=== PATIENT | male | born 1970 | race Caucasian/White ===

== ENCOUNTER → 2021-04-14 13:35 | Outpatient (BNVA) | payer MEDICAID, SELFPAY | PROVIDERS: Family Provider Nurse Practitioner; Referring Provider Nurse Practitioner Family; Visit Provider Specialist | DX: R41.3 Other amnesia (principal); R56.9 Unspecified convulsions; F31.9 Bipolar disorder, unspecified; G47.33 Obstructive sleep apnea (adult) (pediatric); F17.210 Nicotine dependence, cigarettes, uncomplicated | CPT/HCPCS: 96116; 99204; 99205 ==

== ENCOUNTER → 2021-05-13 12:53 | Outpatient (BNVA) | payer MEDICAID, SELFPAY | PROVIDERS: Family Provider Nurse Practitioner; Referring Provider Specialist; Visit Provider Specialist | DX: R56.9 Unspecified convulsions (principal) | CPT/HCPCS: 95816 ==

== ENCOUNTER → 2021-07-16 09:38 | Outpatient (BNVA) | payer MEDICAID, SELFPAY | PROVIDERS: Family Provider Nurse Practitioner; PCP Nurse Practitioner Family; Visit Provider Specialist | DX: R56.9 Unspecified convulsions (principal); F31.9 Bipolar disorder, unspecified; G47.33 Obstructive sleep apnea (adult) (pediatric); F17.200 Nicotine dependence, unspecified, uncomplicated | CPT/HCPCS: 99215 ==

== ENCOUNTER → 2021-10-06 12:48 | Outpatient (BNVA) | payer MEDICAID, SELFPAY | PROVIDERS: Family Provider Nurse Practitioner; PCP Nurse Practitioner Family; Referring Provider Specialist; Visit Provider Specialist | DX: R56.9 Unspecified convulsions (principal) | CPT/HCPCS: 95816 ==

== ENCOUNTER 2021-10-14 00:33 | Emergency (ER) | payer MEDICAID, SELFPAY ==
[2021-10-14 00:45] VITALS: BP 146/89; PULSE 64; RESP 17; TEMP 36.8; O2SAT 96; BMI 35.6
--- NOTE | 2021-10-14 02:00 | CTR_ITS ---
PROCEDURE INFORMATION: Exam: CT Abdomen And Pelvis Without Contrast Exam date and time: 10/14/2021 2:22 AM Age: 51 years old Clinical indication: Abdominal pain; Flank; Right; Prior surgery; Surgery date: 6+ months; Surgery type: Gb; Additional info: Abd pain TECHNIQUE: Imaging protocol: Computed tomography of the abdomen and pelvis without contrast. Radiation optimization: All CT scans at this facility use at least one of these dose optimization techniques: automated exposure control; mA and/or kV adjustment per patient size (includes targeted exams where dose is matched to clinical indication); or iterative reconstruction. COMPARISON: US abdomen limited [id number] 12/25/2016 9:13 AM RADIATION DOSE METRICS: Total DLP (mGy-cm): 1397.15 FINDINGS: Liver: Normal. No mass. Gallbladder and bile ducts: The gallbladder has been surgically removed. Pancreas: Normal. No ductal dilation. Spleen: Normal. No splenomegaly. Adrenal glands: Normal. No mass. Kidneys and ureters: There is a 0.4 cm obstructing stone in the right proximal ureter, resulting in mild hydronephrosis. Nonobstructing stone noted in the left mid kidney. Stomach and bowel: Unremarkable. No obstruction. No mucosal thickening. Appendix: There has been an appendectomy. Intraperitoneal space: Unremarkable. No free air. No significant fluid collection. Vasculature: Mild diffuse atherosclerotic disease is present. Lymph nodes: Small reactive mesenteric lymph nodes noted in the right mid abdomen. Urinary bladder: Unremarkable as visualized. Reproductive: Unremarkable as visualized. Bones/joints: Unremarkable. No acute fracture. Soft tissues: A small fat containing right inguinal hernia is present. CT/CT abdomen pelvis wo con [id number] IMPRESSION: Right proximal ureter obstructing stone, resulting in mild hydronephrosis.
--- NOTE | 2021-10-14 02:04 | ED_ITS ---
HPI - Abdominal Pain General: Chief Complaint: Abdominal Pain Stated Complaint: ABD Pain Time Seen by Provider: 10/14/21 00:34 Source: patient Mode of arrival: ambulatory Limitations: no limitations History of Present Illness: 51-year-old male who states he has been having abdominal pain throughout the day. He states started roughly at 4 PM its been his right lower quadrant is progressively worsened he states his pain is currently a 7 out of 10 denies any vomiting or diarrhea. States it is worse w ith palpation improved with some rest. Denies any fevers. No history of abdominal surgeries in the past. He has had a history of kidney stones. Denies any dysuria Associated Symptoms: Denies chills, dysuria and fever(s) Review of Systems Const: Denies: fever(s), chills, body aches or change in appetite Eyes: Denies: blurry vision or eye discomfort ENMT: Denies: throat pain or dental pain Card: Denies: chest pain Resp: Denies: dyspnea GI: Reports: abdominal pain : Denies: dysuria Musc: Denies: neck pain or back pain Skin/Breast: Denies: rash Neuro: Denies: headache(s) Psych: Denies: depression Dell/Lymph: Denies: easy bruising All/Imm: Denies: urticaria PFSH ED PFSH: Medical History (Updated 10/14/21 @ 02:57 by Ryan Pastor MD) Hypertension Social History Smoking and tobacco status: current every day smoker Alcohol intake: never History of recent travel: No Physical Exam Const: COMMON NORMALS: no acute distress, patient oriented x3 and healthy appearing HENMT: COMMON NORMALS: normocephalic and atraumatic HEAD & SCALP: norm ocephalic and atraumatic Eye: COMMON NORMALS: Equal, round and reactive pupils present and EOMs intact bilaterally PUPIL: Yes Equal, round and reactive pupils present Neck/C-Spine: COMMON NORMALS: full ROM and supple Chest: COMMONS NORMALS: normal inspection of the chest and normal palpation of entire chest wall Resp: COMMON NORMALS: normal respiratory effort, No retractions, No use of accessory muscles and clear to auscultation bilaterally AUSCULTATION: clear to auscultation bilaterally Cardio: COMMON NORMALS: regular rate, regular rhythm and No murmurs present (Cardio) RATE: regular rate RHYTHM: regular rhythm GI: COMMON NORMALS: Normal to inspection, nondistended, normoactive bowel sounds present, Soft to palpation and no masses PALPATION: Yes Soft to palpation and Yes Tenderness to palpation present (GI) Details: RLQ Extremity: COMMON NORMALS: normal to inspection and full ROM Neuro: COMMON NORMALS: patient oriented x3, moves all extremities and no focal motor deficits Psych: COMMON NORMALS: mental status grossly normal, Normal thought process present and cooperative THOUGHT PROCESS: Normal thought process present Skin: COMMON NORMALS: no rashes or lesions noted and no wounds GENERAL SKIN EXAM: no rashes or lesions noted Course Vital Signs: Vital signs: Vital Signs Temperature 98.3 F 10/14/21 00:45 Pulse Rate 64 10/14/21 00:45 Respiratory Rate 18 10/14/21 02:36 Blood Pressure 146/89 10/14/21 00:45 Pulse Oximetry 96 10/14/21 00:45 MDM - Abdominal Pain Medical Decision Making Patient presents with a kidney stone likely causing his pain his pain is much improved here we will get him follow-up with urology he is stable for discharge. Lab Data : 10/14/21 02:30 10/14/21 02:30 Labs/Radiology: Radiology Impressions Abdomen/Pelvis CT 10/14/21 02:00 IMPRESSION: Right proximal ureter obstructing stone, resulting in mild hydronephrosis. Laboratory Results WBC 8.3 10^3/uL (4.0-10.0) 10/14/21 02:30 RBC 4.82 10^6/uL (4.1-5.3) 10/14/21 02:30 Hgb 14.5 g/dL (11.7-16.6) 10/14/21 02:30 Hct 42.5 % (42.0-52.0) 10/14/21 02:30 MCV 88.2 fl (80-94) 10/14/21 02:30 MCH 30.1 pg (28.0-34.0) 10/14/21 02:30 MCHC 34.1 g/dL (30.0-36.0) 10/14/21 02:30 RDW 12.3 % (12.1-15.1) 10/14/21 02:30 Plt Count 230 10^3/cmm (130-400) 10/14/21 02:30 MPV 11.0 fL (7.4-10.4) H 10/14/21 02:30 Neut % (Auto) 60.0 % 10/14/21 02:30 Lymph % (Auto) 24.8 % 10/14/21 02:30 Martin % (Auto) 10.7 % 10/14/21 02:30 Eos % (Auto) 3.5 % 10/14/21 02:30 Baso % (Auto) 0.6 % 10/14/21 02:30 Neut # (Auto) 4.98 10^3/uL (1.8-7.7) 10/14/21 02:30 Lymph # (Auto) 2.1 10^3/uL (0.8-4.8) 10/14/21 02:30 Martin # (Auto) 0.9 10^3/uL (0.2-0.9) 10/14/21 02:30 Eos # (Auto) 0.3 10^3/uL (0.0-0.8) 10/14/21 02:30 Baso # (Auto) 0.1 10^3/uL (0.0-0.1) 10/14/21 02:30 Nucleated RBC % (auto) 0 % 10/14/21 02:30 Nucleated RBCs # 0.0 /100WBC 10/14/21 02:30 Sodium 140 mmol/L (136-145) 10/14/21 02:30 Potassium 3.7 mmol/L (3.5-5.1) 10/14/21 02:30 Chloride 102 mmol/L (98-107) 10/14/21 02:30 Carbon Dioxide 28 mmol/L (22-29) 10/14/21 02:30 Anion Gap 13.7 (5-19) 10/14/21 02:30 BUN 16 mg/dL (6-20) 10/14/21 02:30 Creatinine 0.8 mg/dL (0.7-1.2) 10/14/21 02:30 GFR Calculation 101.9 mL/min (90-130) 10/14/21 02:30 Glucose 112 mg/dL (65-115) 10/14/21 02:30 Calculated Osmolality 292 mOsm/kg (285-295) 10/14/21 02:30 Calcium 9.4 mg/dL (8.5-10.5) 10/14/21 02:30 Total Bilirubin 0.2 mg/dL (0.15-1.2) 10/14/21 02:30 AST 25 U/L (0-40) 10/14/21 02:30 ALT 32 U/L (0-41) 10/14/21 02:30 Alkaline Phosphatase 70 IU/L (40-130) 10/14/21 02:30 Total Protein 7.6 g/dL (6.6-8.7) 10/14/21 02:30 Albumin 4.3 g/dL (3.5-5.2) 10/14/21 02:30 Globulin 3.3 g/dL (1.3-4.6) 10/14/21 02:30 Lipase 18 U/L (13-60) 10/14/21 02:30 Urine Color Dark yellow (Yellow) 10/14/21 02:53 Urine Appearance Hazy (CLEAR) A 10/14/21 02:53 Urine pH 5 (5-7) 10/14/21 02:53 Ur Specific [place] 1.030 (1.005-1.030) 10/14/21 02:53 Urine Protein 1+ (Negative) H 10/14/21 02:53 Urine Glucose (UA) Norm (Normal) 10/14/21 02:53 Urine Ketones 1+ (Negative) H 10/14/21 02:53 Urine Blood 3+ (Negative) H 10/14/21 02:53 Urine Nitrate Negative (Negative) 10/14/21 02:53 Urine Bilirubin Neg (Negative) 10/14/21 02:53 Urine Urobilinogen 1 mg/dL (Negative) H 10/14/21 02:53 Ur Leukocyte Esterase Negative (Negative) 10/14/21 02:53 Urine RBC Too numerous to cnt /hpf (0-2) H 10/14/21 02:53 Urine WBC 0-4 /hpf (0-5) H 10/14/21 02:53 Ur Squamous Epith Cells 0-4 /hpf (0-5) H 10/14/21 02:53 Calcium Oxalate Crystal 0-4 /hpf H 10/14/21 02:53 Amorphous Sediment Not Reportable 10/14/21 02:53 Urine Bacteria Trace /hpf (NONE) 10/14/21 02:53 Urine Mucus 1+ /hpf 10/14/21 02:53 Urine Sperm 2+ /hpf 10/14/21 02:53 Discharge Plan Discharge Patient Disposition: Home Clinical Impression: Calculus of kidney Condition: Stable Prescriptions: New hydrocodone-acetaminophen 5-325 mg tablet 1 tab PO Q6H PRN (Reason: pain) Qty: 14 0RF ondansetron 4 mg tablet,disintegrating 4 mg PO Q6H PRN (Reason: nausea and vomiting) Qty: 14 0RF Flomax 0.4 mg capsule 0.4 mg PO DAILY Qty: 4 0RF No Action atomoxetine [Strattera] 18 mg capsule 36 mg PO DAILY 0RF meloxicam 15 mg tablet 15 mg PO DAILY 0RF lisinopril 10 mg tablet 10 mg PO DAILY 0RF lamotrigine 200 mg tablet 200 mg PO BID 0RF aripiprazole 10 mg tablet 10 mg PO DAILY 0RF tamsulosin 0.4 mg capsule 0.4 mg PO DAILY 0RF tizanidine 4 mg capsule 4 mg PO BID PRN0RF testosterone cypionate 200 mg/mL oil 100 mg SUBCUT Q7D 0RF Discharge Orders: Discharge ED (Routine); Ordered 10/14/21 Ordered By: Ryan Pastor Referrals: Zion Banerjee MD [Physician] - 1-3 days Ami Bui [Primary Care Provider] - Discharge Diet: Advance as tolerated Discharge Activity: Resume usual activity Patient Instructions: Kidney Stones (ED), Opioid Safety Coding Level of Care Code ED Director Of Rehabilitation And Wellness for Chg Fwd Exam Comprehensive
[2021-10-14 02:36] VITALS: RESP 18
[2021-10-14] MEDS: ondansetron 2 mg/ML SDV 2 mL 4 MG IVP (02:36)
[2021-10-14] MEDS: morphine 4 mg/mL SDV 1 mL IVP ×2 (02:36→04:33)
[2021-10-14] MEDS: sodium chloride 0.9% 1,000 ML 999 ML IV (02:37)
[2021-10-14 02:44] LABS: Basophils # 0.1 10^3/uL (0.0-0.1); Basophils % 0.6 %; Eosinophils # 0.3 10^3/uL (0.0-0.8); Eosinophils % 3.5 %; Hematocrit 42.5 % (42.0-52.0); Hemoglobin 14.5 g/dL (11.7-16.6); Lymphocytes # 2.1 10^3/uL (0.8-4.8); Lymphocytes % 24.8 %; Mean Corpuscular HGB Conc 34.1 g/dL (30.0-36.0); Mean Corpuscular Hemoglobin 30.1 pg (28.0-34.0); Mean Corpuscular Volume 88.2 fl (80-94); Monocytes # 0.9 10^3/uL (0.2-0.9); Monocytes % 10.7 %; Neutrophils # 4.98 10^3/uL (1.8-7.7); Nucleated Red Blood Cells % 0 %; Platelet Count 230 10^3/cmm (130-400); Red Blood Count 4.82 10^6/uL (4.1-5.3); Red Cell Distribution Width 12.3 % (12.1-15.1); White Blood Count 8.3 10^3/uL (4.0-10.0)
[2021-10-14 03:04] LABS: Alanine Aminotransferase 32 U/L (0-41); Albumin Level 4.3 g/dL (3.5-5.2); Alkaline Phosphatase 70 IU/L (40-130); Anion Gap 13.7 (5-19); Aspartate Amino Transferase 25 U/L (0-40); Blood Urea Nitrogen 16 mg/dL (6-20); Calcium 9.4 mg/dL (8.5-10.5); Carbon Dioxide 28 mmol/L (22-29); Chloride 102 mmol/L (98-107); Globulin 3.3 g/dL (1.3-4.6); Glomerular Filtration Rate 101.9 mL/min (90-130); Glucose 112 mg/dL (65-115); Lipase 18 U/L (13-60); Osmolality Calculated 292 mOsm/kg (285-295); Potassium 3.7 mmol/L (3.5-5.1); Sodium 140 mmol/L (136-145); Total Bilirubin 0.2 mg/dL (0.15-1.2); Total Protein 7.6 g/dL (6.6-8.7)
[2021-10-14 03:30] LABS: Add Urine Microscopic? YES; Bacteria Urine TRACE /hpf; Bilirubin Urine Neg (Negative); Blood Urine 3+ (Negative); Glucose Urine UA Norm (Normal); Ketones Urine 1+ (Negative); Leukocyte Esterase Urine Negative (Negative); Mucus Urine 1+ /hpf; Nitrate Urine Negative (Negative); Protein Urine 1+ (Negative); RBC Urine TOO NUMEROUS TO CNT /hpf (0-2); Squamous Epithelial Cell Urine 0-4 /hpf (0-5); Urine Appearance Hazy (CLEAR); Urine Color Dark Yellow (Yellow); Urobilinogen Urine 1 mg/dL (Negative); WBC Urine 0-4 /hpf (0-5); pH Urine 5 (5-7)
[2021-10-14 03:31] LABS: Add Urine Culture? Yes; Calcium Oxalate Crystals Urine 0-4 /hpf; Sperm Urine 2+ /hpf
[2021-10-14 04:33] VITALS: RESP 18
[2021-10-14 05:12] VITALS: BP 132/78; PULSE 67; RESP 16; O2SAT 98
--- NOTE | 2021-10-14 10:48 | DCPLANNER ---
Addendum entered by Carmen Bui 11/19/21 16:02: Patient had a follow up appointment scheduled for 10.27.21 with - patient did attend appointment. Original Note: project manager had message to schedule a follow up appointment for patient with urology. project manager sent patients information to the front office staff at urology. Patients information will be printed and reviewed. Clinic will call patient with appointment information.
== END 2021-10-14 05:14 | disposition home or self-care (01) ==
PROVIDERS: Emergency Provider Emergency Medicine; PCP Nurse Practitioner Family
DX: N20.0 Calculus of kidney (principal)
CPT/HCPCS: 74176; 80053; 81001; 83690; 85025; 87086; 96361; 96374; 96375; 96376; 99284; J2270; J2405; J7030

== ENCOUNTER → 2021-10-16 11:07 | Outpatient (BNVA) | payer MEDICAID, SELFPAY | PROVIDERS: PCP Nurse Practitioner Family; Visit Provider Specialist | DX: R56.9 Unspecified convulsions (principal); G47.33 Obstructive sleep apnea (adult) (pediatric); F31.9 Bipolar disorder, unspecified | CPT/HCPCS: 99213 ==

== ENCOUNTER 2021-10-17 20:38 | Emergency (ER) | payer MEDICAID, SELFPAY ==
[2021-10-17 20:54] VITALS: BP 173/105; PULSE 66; RESP 20; TEMP 36.9; O2SAT 97; BMI 35.3
--- NOTE | 2021-10-18 | ED_ITS ---
HPI - Back Pain/Injury General: Chief Complaint: Back Pain/Injury Stated Complaint: pain in kidney Time Seen by Provider: 10/17/21 23:39 Source: patient History of Present Illness: 51-year-old male seen a couple of days ago, in the ER, and diagnosed with a kidney stone on the right. He returns tonight with increasing pain and nausea. He notes pain medication was helping, but is not currently. He denies fever. He notes the pain has moved lower in his pelvis on the right. MD elicited complaint: back pain Pertinent past history: kidney stones Onset (ago): day(s) Timing: constant and progressively worsening Severity: severe Similar Symptoms Previously: Yes Quality: sharp, stabbing and aching Location: right flank and right lower back Radiation: groin Exacerbating factors: none Relieving factors: none Associated symptoms: Reports abdominal pain, fatigue, hematuria and nausea; Deny change in bowel habits, dysuria, fever(s), tingling/numbness/burning or vomiting Review of Systems Const: Reports: fatigue; Denies: fever(s) Card: Denies: chest pain Resp: Denies: dyspnea GI: Reports: abdominal pain and nausea; Denies: vomiting or change in bowel habits : Reports: hematuria; Denies: dysuria Musc: Reports: back pain PFS ED PFSH: Medical History Hypertension Social History Smoking and tobacco status: current every day smoker Alcohol intake: never History of recent travel: No Physical Exam Const: GENERAL APPEARANCE: cooperative and in distress (Mild from pain) HENMT: COMMON NORMALS: normocephalic, atraumatic and Normal external nose present HEAD & SCALP: normocephalic and atraumatic NOSE: Normal external nose present Eye: COMMON NORMALS: Equal, round and reactive pupils present and EOMs intact bilaterally PUPIL: Yes Equal, round and reactive pupils present Neck/C-Spine: GENERAL: Yes trachea midline Chest: CHEST: Yes Symmetrical chest wall rise Resp: COMMON NORMALS: normal respiratory effort, No use of accessory muscles and clear to auscultation bilaterally AUSCULTATION: clear to auscultation bilaterally Cardio: COMMON NORMALS: regular rate and regular rhythm RATE: regular rate RHYTHM: regular rhythm GI: COMMON NORMALS: Normal to inspection, nondistended, normoactive bowel sounds present PALPATION: Yes Tenderness to palpation present (GI) (Right groin/pelvic) : BLADDER/KIDNEY EXAM: Yes CVA tenderness on the right Back/Pelvis: GENERAL BACK: Yes CVA tenderness Extremity: COMMON NORMALS: no pedal edema Neuro: STACY COMA SCALE: document GCS findings [place] coma scale eye opening: Spontaneous Stacy coma scale verbal response: Orientated [place] coma scale motor response: Obey commands [place] coma scale total score: 15 Course Vital Signs: Vital signs: Vital Signs Temperature 98.5 F 10/17/21 20:54 Pulse Rate 58 L 10/18/21 03:58 Respiratory Rate 16 10/18/21 03:58 Blood Pressure 117/74 10/18/21 03:58 Pulse Oximetry 95 10/18/21 03:58 MDM - Back Pain/Injury Medical Decision Making Pain is improved from pain medication. Prior CT showed a high 4 mm ureteral stone with hydronephrosis. Repeat CT scanning shows a UVJ 4 mm stone with some hydronephrosis. Patient was given the option of admission for pain control, but knowing that the stone is moving, and there is no infection, the patient is willing to go home on increased dosage of pain medication. He was prescribed hydrocodone previously. He is taking his Flomax. He will be prescribed hydromorphone every 6 hours as needed. He was told not to take them together. He will push oral hydration. Labs : 10/17/21 23:40 10/17/21 23:40 Radiology Impressions Abdomen/Pelvis CT 10/18/21 00:26 IMPRESSION: 1. Obstructing 4 mm stone in the distal right ureter causing hydroureter and hydronephrosis with periureteral and trace perinephric fat stranding. 2. Left-sided nephrolithiasis. COMMENTS: Evaluation of solid organs and vascular structures is limited as no IV contrast was administered. Laboratory Results WBC 8.9 10^3/uL (4.0-10.0) 10/17/21 23:40 RBC 4.87 10^6/uL (4.1-5.3) 10/17/21 23:40 Hgb 14.8 g/dL (11.7-16.6) 10/17/21 23:40 Hct 42.6 % (42.0-52.0) 10/17/21 23:40 MCV 87.5 fl (80-94) 10/17/21 23:40 MCH 30.4 pg (28.0-34.0) 10/17/21 23:40 MCHC 34.7 g/dL (30.0-36.0) 10/17/21 23:40 RDW 12.2 % (12.1-15.1) 10/17/21 23:40 Plt Count 247 10^3/cmm (130-400) 10/17/21 23:40 MPV 11.1 fL (7.4-10.4) H 10/17/21 23:40 Neut % (Auto) 58.7 % 10/17/21 23:40 Lymph % (Auto) 25.8 % 10/17/21 23:40 Ross % (Auto) 11.1 % 10/17/21 23:40 Eos % (Auto) 3.2 % 10/17/21 23:40 Baso % (Auto) 0.6 % 10/17/21 23:40 Neut # (Auto) 5.21 10^3/uL (1.8-7.7) 10/17/21 23:40 Lymph # (Auto) 2.3 10^3/uL (0.8-4.8) 10/17/21 23:40 Ross # (Auto) 1.0 10^3/uL (0.2-0.9) H 10/17/21 23:40 Eos # (Auto) 0.3 10^3/uL (0.0-0.8) 10/17/21 23:40 Baso # (Auto) 0.1 10^3/uL (0.0-0.1) 10/17/21 23:40 Nucleated RBC % (auto) 0 % 10/17/21 23:40 Nucleated RBCs # 0.0 /100WBC 10/17/21 23:40 Sodium 140 mmol/L (136-145) 10/17/21 23:40 Potassium 4.0 mmol/L (3.5-5.1) 10/17/21 23:40 Chloride 103 mmol/L (98-107) 10/17/21 23:40 Carbon Dioxide 24 mmol/L (22-29) 10/17/21 23:40 Anion Gap 17.0 (5-19) 10/17/21 23:40 BUN 13 mg/dL (6-20) 10/17/21 23:40 Creatinine 0.9 mg/dL (0.7-1.2) 10/17/21 23:40 GFR Calculation 103.0 mL/min (90-130) 10/17/21 23:40 Glucose 104 mg/dL (65-115) 10/17/21 23:40 Calculated Osmolality 290 mOsm/kg (285-295) 10/17/21 23:40 Calcium 9.4 mg/dL (8.5-10.5) 10/17/21 23:40 Total Bilirubin 0.2 mg/dL (0.15-1.2) 10/17/21 23:40 AST 25 U/L (0-40) 10/17/21 23:40 ALT 28 U/L (0-41) 10/17/21 23:40 Alkaline Phosphatase 74 IU/L (40-130) 10/17/21 23:40 Total Protein 7.7 g/dL (6.6-8.7) 10/17/21 23:40 Albumin 4.4 g/dL (3.5-5.2) 10/17/21 23:40 Globulin 3.3 g/dL (1.3-4.6) 10/17/21 23:40 Lipase 21 U/L (13-60) 10/17/21 23:40 Urine Color Dark yellow (Yellow) 10/17/21 23:40 Urine Appearance Hazy (CLEAR) A 10/17/21 23:40 Urine pH 5 (5-7) 10/17/21 23:40 Ur Specific [place] 1.030 (1.005-1.030) 10/17/21 23:40 Urine Protein 3+ (Negative) H 10/17/21 23:40 Urine Glucose (UA) Norm (Normal) 10/17/21 23:40 Urine Ketones Negative (Negative) 10/17/21 23:40 Urine Blood 3+ (Negative) H 10/17/21 23:40 Urine Nitrate Positive (Negative) H 10/17/21 23:40 Urine Bilirubin 2+ (Negative) H 10/17/21 23:40 Urine Urobilinogen 4+ mg/dL (Negative) H 10/17/21 23:40 Ur Leukocyte Esterase Negative (Negative) 10/17/21 23:40 Urine RBC 50-80 /hpf (0-2) H 10/17/21 23:40 Urine WBC 0-4 /hpf (0-5) H 10/17/21 23:40 Ur Squamous Epith Cells 0-4 /hpf (0-5) H 10/17/21 23:40 Calcium Oxalate Crystal 0-4 /hpf H 10/17/21 23:40 Amorphous Sediment Not Reportable 10/17/21 23:40 Urine Bacteria Trace /hpf (NONE) 10/17/21 23:40 Urine Mucus 1+ /hpf 10/17/21 23:40 Discharge Plan Discharge Patient Disposition: Home Clinical Impression: Calculus of kidney Condition: Stable Prescriptions: New Dilaudid 4 mg tablet 4 mg PO Q6H PRN (Reason: pain) Qty: 10 0RF Discontinued hydrocodone-acetaminophen 5-325 mg tablet 1 tab PO Q6H PRN (Reason: pain) Qty: 14 0RF No Action atomoxetine [Strattera] 18 mg capsule 36 mg PO DAILY 0RF meloxicam 15 mg tablet 15 mg PO DAILY 0RF lisinopril 10 mg tablet 10 mg PO DAILY 0RF lamotrigine 200 mg tablet 200 mg PO BID 0RF aripiprazole 10 mg tablet 10 mg PO DAILY 0RF tamsulosin 0.4 mg capsule 0.4 mg PO DAILY 0RF tizanidine 4 mg capsule 4 mg PO BID PRN0RF testosterone cypionate 200 mg/mL oil 100 mg SUBCUT Q7D 0RF ondansetron 4 mg tablet,disintegrating 4 mg PO Q6H PRN (Reason: nausea and vomiting) Qty: 14 0RF Flomax 0.4 mg capsule 0.4 mg PO DAILY Qty: 4 0RF Discharge Orders: Discharge ED (Routine); Ordered 10/18/21 Ordered By: Tigre Cordova Referrals: Zion Banerjee MD [Physician] - 4-7 days Ami Bui [Primary Care Provider] - Patient Instructions: Kidney Stones (ED), Opioid Safety Activity Restrictions/Additional Instructions: Return for fever greater than 100, inability to control pain despite pain medication, vomiting liquids or medications, any other concerning symptoms. Coding Level of Care Code ED Cnc Service Technician for Gustabo Reeves
[2021-10-18 00:13] LABS: Alanine Aminotransferase 28 U/L (0-41); Albumin Level 4.4 g/dL (3.5-5.2); Alkaline Phosphatase 74 IU/L (40-130); Bilirubin Urine 2+ (Negative); Blood Urea Nitrogen 13 mg/dL (6-20); Blood Urine 3+ (Negative); Calcium 9.4 mg/dL (8.5-10.5); Carbon Dioxide 24 mmol/L (22-29); Chloride 103 mmol/L (98-107); Globulin 3.3 g/dL (1.3-4.6); Glucose 104 mg/dL (65-115); Glucose Urine UA Norm (Normal); Ketones Urine Negative (Negative); Lipase 21 U/L (13-60); Nitrate Urine Positive (Negative); Osmolality Calculated 290 mOsm/kg (285-295); Protein Urine 3+ (Negative); Sodium 140 mmol/L (136-145); Total Bilirubin 0.2 mg/dL (0.15-1.2); Total Protein 7.7 g/dL (6.6-8.7); Urine Appearance Hazy (CLEAR); Urine Color Dark Yellow (Yellow); pH Urine 5 (5-7)
[2021-10-18 00:14] LABS: Add Urine Microscopic? YES; Leukocyte Esterase Urine Negative (Negative); Urobilinogen Urine 4+ mg/dL (Negative)
[2021-10-18 00:15] LABS: RBC Urine 50-80 /hpf (0-2)
[2021-10-18 00:16] LABS: Add Urine Culture? Yes; Bacteria Urine TRACE /hpf; Basophils # 0.1 10^3/uL (0.0-0.1); Basophils % 0.6 %; Calcium Oxalate Crystals Urine 0-4 /hpf; Eosinophils # 0.3 10^3/uL (0.0-0.8); Eosinophils % 3.2 %; Hematocrit 42.6 % (42.0-52.0); Hemoglobin 14.8 g/dL (11.7-16.6); Lymphocytes # 2.3 10^3/uL (0.8-4.8); Lymphocytes % 25.8 %; Mean Corpuscular HGB Conc 34.7 g/dL (30.0-36.0); Mean Corpuscular Hemoglobin 30.4 pg (28.0-34.0); Mean Corpuscular Volume 87.5 fl (80-94); Mean Platelet Volume 11.1 fL (7.4-10.4); Monocytes % 11.1 %; Mucus Urine 1+ /hpf; Neutrophils # 5.21 10^3/uL (1.8-7.7); Neutrophils % 58.7 %; Nucleated Red Blood Cells % 0 %; Platelet Count 247 10^3/cmm (130-400); Red Blood Count 4.87 10^6/uL (4.1-5.3); Red Cell Distribution Width 12.2 % (12.1-15.1); Squamous Epithelial Cell Urine 0-4 /hpf (0-5); WBC Urine 0-4 /hpf (0-5); White Blood Count 8.9 10^3/uL (4.0-10.0)
[2021-10-18 00:24] LABS: Aspartate Amino Transferase 25 U/L (0-40)
--- NOTE | 2021-10-18 00:26 | CTR_ITS ---
PROCEDURE INFORMATION: Exam: CT Abdomen And Pelvis Without Contrast Exam date and time: 10/18/2021 12:42 AM Age: 51 years old Clinical indication: Abdominal pain; Right; Patient HX: C/O RT flank pain; Additional info: R flank pain TECHNIQUE: Imaging protocol: Computed tomography of the abdomen and pelvis without contrast. Radiation optimization: All CT scans at this facility use at least one of these dose optimization techniques: automated exposure control; mA and/or kV adjustment per patient size (includes targeted exams where dose is matched to clinical indication); or iterative reconstruction. COMPARISON: CT abdomen pelvis wo con [id number] 10/14/2021 2:22 AM RADIATION DOSE METRICS: Total DLP (mGy-cm): 8.77 FINDINGS: Lungs: The visualized lung bases demonstrate no focal airspace opacification or pleural effusion. Heart: The visualized heart is within normal limits for size. There is no evidence of pericardial abnormality. Liver: The liver is normal in size and contour. Gallbladder and bile ducts: The gallbladder is distended with normal wall thickness and does not demonstrate calcified gallstones. No intra- or extra-hepatic biliary ductal dilatation. Pancreas: The pancreas appears normal. Spleen: Small splenule noted. The spleen appears unremarkable. Adrenal glands: The adrenals appear normal. Kidneys and ureters: Left-sided nephrolithiasis. Moderate right-sided hydronephrosis. Trace right-sided perinephric fat stranding. No right-side renal stones identified. 4 mm stone noted in the distal right ureter, approximately 6 cm above the ureterovesical junction. Hydroureter and periureteral fat stranding noted. Stomach and bowel: The stomach is unremarkable. The small bowel loops are not abnormally dilated. The large bowel loops are not abnormally dilated. Appendix: The appendix is surgically absent. Intraperitoneal space: No ascites or significant fluid collection. Vasculature: The aorta is nonaneurysmal. The IVC appears normal. Lymph nodes: There are no enlarged lymph nodes. Urinary bladder: The bladder is distended and demonstrates no focal contour abnormality. Reproductive: The prostate is unremarkable. The seminal vesicles are unremarkable. Bones/joints: Degenerative changes in the sacroiliac joints. Soft tissues: Unremarkable. CT/CT kidney stone [id number] IMPRESSION: 1. Obstructing 4 mm stone in the distal right ureter causing hydroureter and hydronephrosis with periureteral and trace perinephric fat stranding. 2. Left-sided nephrolithiasis. COMMENTS: Evaluation of solid organs and vascular structures is limited as no IV contrast was administered.
[2021-10-18 00:32] VITALS: RESP 18
[2021-10-18] MEDS: HYDROmorphone 1 mg/mL INJ 1 mL IVP ×3 (00:32→03:51)
[2021-10-18] MEDS: ondansetron 2 mg/ML SDV 2 mL 4 MG IVP (00:32)
[2021-10-18] MEDS: sodium chloride 0.9% 1,000 ML 999 ML IV (00:36)
[2021-10-18 00:56] VITALS: BP 140/78; PULSE 58; RESP 17; O2SAT 95
[2021-10-18 02:06] VITALS: RESP 18
[2021-10-18 02:21] VITALS: BP 152/78; PULSE 57; RESP 16; O2SAT 95
[2021-10-18 03:51] VITALS: RESP 16
[2021-10-18 03:58] VITALS: BP 117/74; PULSE 58; RESP 16; O2SAT 95
== END 2021-10-18 04:00 | disposition home or self-care (01) ==
PROVIDERS: Emergency Medicine; Emergency Provider Emergency Medicine; PCP Nurse Practitioner Family
DX: N20.0 Calculus of kidney (principal)
CPT/HCPCS: 74176; 80053; 81001; 81003; 83690; 85025; 87086; 96361; 96374; 96375; 96376; 99284; J1170; J2405; J7030

== ENCOUNTER → 2021-10-27 12:38 | Outpatient (BNVA) | payer MEDICAID, SELFPAY | PROVIDERS: PCP Nurse Practitioner Family; Visit Provider Urology | DX: N20.1 Calculus of ureter (principal) | CPT/HCPCS: 74018; 81003; 99203 ==

== ENCOUNTER 2021-11-11 07:00 | Outpatient (CLI) | payer MEDICAID, SELFPAY | END 2021-11-11 07:01 | disposition home or self-care (01) | LOC: RAD 07:01 | PROVIDERS: PCP Nurse Practitioner Family; Visit Provider Urology | DX: N20.2 Calculus of kidney with calculus of ureter | CPT/HCPCS: 74018; 81003; 99213 ==